=== PATIENT | male | born 1955 | race Caucasian/White ===

== ENCOUNTER 2020-06-12 13:43 | Outpatient (CLI) | payer MEDICARE, BC, SELFPAY ==
--- NOTE | ~2020-06-12 | CT_ITS ---
EXAMINATION: CT chest wo con DATE: 06/12/2020 14:09 INDICATION: Solitary pulmonary nodule TECHNIQUE: Computed tomography (CT) of the chest was performed without intravenous contrast. The dose -length product (DLP) was 86.95 mGy-cm. Automated exposure control and iterative reconstruction techn ique were employed. COMPARISON: 12/23/2018 FINDINGS: Stable bilateral pulmonary nodules are present which are consistent with old granulomatous disease. No new or suspicious pulmonary nodule is identified. There is no pleural effusion or pneumot horax. No pathologically enlarged thoracic lymph nodes are identified. The heart size is normal. Heal ed left-sided rib fractures are noted. Again noted is dilation of the ascending aorta which measures 4 cm at the level of the main pulmonary artery. Calcified coronary artery atherosclerosis is noted. T here is mild thoracic spondylosis. IMPRESSION: 1. Lung nodules consistent with old granulomatous disease. Reviewed, dictated and finalized at location A.
== END 2020-06-12 13:44 | disposition home or self-care (01) ==
PROVIDERS: Visit Provider Nurse Practitioner
DX: R91.1 Solitary pulmonary nodule (principal)
CPT/HCPCS: 71250

== ENCOUNTER 2021-06-09 16:59 | Outpatient (CLI) | payer MEDICARE, BC, SELFPAY ==
[2021-06-12 13:20] LABS: NIL 0.01 IU/mL; Quantiferon TB Plus, 1T NEGATIVE (NEGATIVE)
== END 2021-06-09 17:00 | disposition home or self-care (01) ==
PROVIDERS: PCP Family Medicine; Visit Provider Nurse Practitioner Family
DX: Z11.1 Encounter for screening for respiratory tuberculosis (principal)
CPT/HCPCS: 36415; 86480